=== PATIENT | male | born 1995 | race Hispanic/Latino ===

== ENCOUNTER 2018-02-06 12:52 | Outpatient (CLI) | payer BC ==
--- NOTE | 2018-02-06 14:46 | RAD ---
LEFT ANKLE 3 VIEWS: Date: 02/06/18 HISTORY: Injury. Left ankle pain. FINDINGS/IMPRESSION: Soft tissue swelling is present. The ankle mortise is maintained. No acute fracture or dislocation is identified. POS: [facility]
== END 2018-02-06 12:53 | disposition home or self-care (01) ==
LOC: BICRAD 12:52
PROVIDERS: ATTEND Family Medicine
DX: S80.812A Abrasion, left lower leg, initial encounter (principal); M79.89 Other specified soft tissue disorders